=== PATIENT | female | born 1965 | race Caucasian/White ===

== ENCOUNTER → 2016-08-12 | Outpatient (CLI) | payer OTHER ==
[~2016-08-12] MED LIST: CALC600T9 PO; CHOL1TAB46 PO; COEN1CAP32 PO; FEXO1TAB49 PO; KETO10TA PO; MAGN400T6 PO; MULT-506 PO; OMEG10007 PO; OXYC-57 PO; PRLSR20 PO; VITA1TAB4 PO; VITACAP26 PO
[2016-08-12 09:40] LABS: BASO % 0.6 %; BASO ABS # 0.03 K/uL (0-0.2); COMPLETE YES; EOS % 2.4 %; HEMATOCRIT 42.1 % (37-47); IG% 0.2 %; LYMPH % 32.1 %; LYMPH ABS # 1.61 K/uL (1.2-3.4); MEAN CELL VOLUME 89.2 fL (80-100); MEAN CORPUSCULAR HEMOGLOBIN 29.4 pg (25-34); MEAN PLATELET VOLUME 9.3 fL (7.4-10.4); MONO % 8.4 %; NEUT % 56.3 %; PLATELET COUNT 267 K/uL (130-400); RED BLOOD COUNT 4.72 M/uL (4.2-5.4); WHITE BLOOD COUNT 5.01 K/uL (4.8-10.8)
[2016-08-12 09:56] LABS: BLOOD UREA NITROGEN 18 mg/dl (7-18); BUN/CREATININE RATIO 20.1 (10-20); CARBON DIOXIDE 25 mmol/L (21-32); CHLORIDE 106 mmol/L (98-107); GLUCOSE 91 mg/dl (70-99); POTASSIUM 4.2 mmol/L (3.5-5.1); SODIUM 139 mmol/L (136-145)
[2016-08-12 09:58] LABS: CALCIUM 9.4 mg/dl (8.5-10.1)
== END | disposition home or self-care (01) ==
LOC: C.CPL 08:19
PROVIDERS: ATTEND Orthopaedic Surgery Sports Medicine
DX: Z01.810 Encounter for preprocedural cardiovascular examination (principal); Z01.812 Encounter for preprocedural laboratory examination

== ENCOUNTER → 2016-08-26 | Day surgery (SDC) | payer OTHER ==
[2016-08-25 14:03] VITALS: Ht 165.1 cm; Wt 73.2 kg
[~2016-08-26] VITALS: Ht 165.1 cm; Wt 73.2 kg
[~2016-08-26] MED LIST changes: +ATROPINE SULFATE 0.1 MG/ML 5ML SYR IV PRN; +BUPIVACAINE/EPINEPHRINE 0.5% MPF 1:200,000 30 ML VIAL ONE; +CEFAZOLIN 1000MG/55 ML D5W IV SCH; +CEFAZOLIN SOD 1 GM VIAL ONE; +CEFAZOLIN SOD 1000MG/55 ML D5W IV ONE; +DEXAMETHASONE SOD INJ 4 MG/ML VIAL ONE; +FENTANYL CITRATE INJ 50 MCG/1 ML 2 ML VIAL IV PRN; +FENTANYL CITRATE INJ 50 MCG/1 ML 2 ML VIAL ONE; +KETOROLAC TROMETHAMINE 30 MG/ML VIAL IV. PRN; +LACTATED RINGER'S 1000ML 1,000 ML IV SCH; +LIDOCAINE HCL 2% 2 ML VIAL (20MG/ML) ONE; +MIDAZOLAM HCL 1 MG/ML 2ML VIAL ONE; +ONDANSETRON INJ 2 MG/ML 2 ML VIAL IV PRN; +ONDANSETRON INJ 2 MG/ML 2 ML VIAL ONE; +OXYCODONE/ACETAMINOPHEN 5-325 TAB PO PRN; +PROPOFOL IV EMULSION 10 MG/ML 20 ML VIAL IV ONE; +SODIUM CHLORIDE 0.9% 1000ML 1,000 ML IV SCH
--- NOTE | 2016-08-26 07:03 | History & Physical Bridge - [place] ---
H&P Re-Evaluation Bridge Note: I have examined the patient, reviewed the History & Physical and in the interval since the performance of the History & Physical I have noted the following changes of clinical significance: No changes noted
--- NOTE | 2016-08-26 09:53 | Discharge Instructions-SurgCtr ---
Discharge Instructions Date of Service Aug 26, 2016. Visit Reason for Visit: Bilateral Foot Pain; Hallux Valgus & Bunion Discharge Discharge Diagnosis / Problem: right hallux valgus deformity Discharge Goals Goal(s): Decrease discomfort, Improve function, Therapeutic intervention Activity Recommendations Activity Limitations: per Instructions/Follow-up section Weightbearing Status: Right weightbearing (as tolerated on heel with post op shoe ) Anesthesia . Post Anesthesia Instructions: If you have had General Anesthesia or IV Sedation: * Do not drive today. * Resume driving when surgeon permits. * Do not make important decisions or sign legal documents today. * Call surgeon for: 1. Temperature elevations greater than 101 degrees F. 2. Uncontrollable pain. 3. Excessive bleeding. 4. Persistent nausea and vomiting. 5. Medication intolerance (nausea, vomiting or rash). * For nausea and vomiting use only clear liquids such as: tea, soda, bouillon until nausea subsides, then gradually increase diet as tolerated. * If you have any concerns or questions, call your surgeon's office. If physician is unavailable and it is an emergency, call 911 or go to the nearest emergency room. . Diet Recommendations Home Diet: resume previous diet Procedures Procedures Performed: Right Hallux Valgus Correction; First Metatarsal Osteotomy Pending Studies Studies pending at discharge: no Medical Emergencies . Who to Call and When: Medical Emergencies: If at any time you feel your situation is an emergency, please call 911 immediately. . Non-Emergent Contact Non-Emergency issues call your: Surgeon . . "Provider Documentation" section prepared by Juan Francisco Arora. .
--- NOTE | 2016-08-26 09:54 | [facility] Post Operative Brief Note ---
Immediate Operative Summary Operative Date Aug 26, 2016. Pre-Operative Diagnosis Right Hallux Valgus and Bunion Post-Operative Diagnosis Same Procedure(s) Performed Right Hallux Valgus Correction; First Metatarsal Osteotomy and distal soft tissue re-alignment Surgeon Dr. Elva Milligan Exercise Planner Surgeon(s) Marlo Arora PA-C Estimated Blood Loss 20 ML Findings Bunion; Hallus Valgus Specimens NONE Anesthesia General Complication(s) None Disposition Recovery Room / PACU
--- NOTE | 2016-08-26 10:13 | Anesthesia Progress Nt - [facility] ---
Anesthesia Post Op Note Date & Time Aug 26, 2016 at 10:13 Vital Signs Pain Intensity: 0 Vital Signs Past 12 Hours Date Time Temp Pulse Resp B/P (MAP) Pulse Ox O2 Delivery O2 Flow Rate FiO2 08/26/16 10:05 59 13 100 08/26/16 10:05 61 13 08/26/16 10:01 125/61 08/26/16 10:00 60 16 100 08/26/16 10:00 60 16 08/26/16 09:56 122/59 08/26/16 09:55 63 14 100 08/26/16 09:55 63 14 08/26/16 09:51 119/65 08/26/16 09:50 69 19 08/26/16 09:50 69 19 100 08/26/16 09:50 36.5 69 12 119/65 99 Diffusion Mask 6 08/26/16 07:08 37.0 59 16 120/74 (89) 95 Room Air Notes Mental Status: alert / awake / arousable, participated in evaluation Pt Amnestic to Procedure: Yes Nausea / Vomiting: adequately controlled Pain: adequately controlled Airway Patency, RR, SpO2: stable & adequate BP & HR: stable & adequate Hydration State: stable & adequate Anesthetic Complications: no major complications apparent
[2016-08-26 10:38] VITALS: TEMP 36.4
[2016-08-26 11:15] VITALS: BP 121/78; PULSE 58; O2SAT 99
--- NOTE | 2016-08-27 14:10 | OPERATIVE REPORT ---
DATE: 08/26/2016 PREOPERATIVE DIAGNOSIS: Right symptomatic hallux valgus/bunion deformity. POSTOPERATIVE DIAGNOSIS: Same. PROCEDURE: Right hallus valgus correction with first metatarsal osteotomy and distal soft tissue realignment. SURGEON: Dr. Anatoliy Milligan. DIRECTOR OF RETAIL OPERATIONS: Maycol Arora PA-C. COMPLICATIONS: None. ESTIMATED BLOOD LOSS: 20 cc. TOURNIQUET TIME: 59 minutes at 300 mmHg. ANESTHESIA: General. OPERATIVE INDICATIONS: Patient is a 51-year-old female who has had a long history of bilateral foot pain and discomfort dating back to her teenage years. She tried to manage this conservatively but became more difficult over time. The bunion has progressed. She is having difficulty with shoe wear. She elected to proceed with surgical treatment. OPERATIVE IMPLANTS: Synthes 2.4 mm steel screws, one at 18 mm in length, one at 20 mm in length, and one at 26 mm in length. OPERATIVE PROCEDURE: Patient was taken to the operating room, identified and placed on the operating table in supine position. All contact areas were appropriately padded. IV antibiotics were provided by the anesthesia team. A general anesthetic was implemented by anesthesia team. Right thigh tourniquet was then placed. The right ankle was then prepped with alcohol. I then did an ankle block with a total of 30 cc of 0.5% Marcaine with epinephrine. The right foot and ankle were then prepped and draped in the usual sterile fashion. The right leg was elevated and exsanguinated with Esmarch and tourniquet was placed at 300 mmHg. Attention was first drawn to the lateral release. A 3 cm incision was made in the first web space. Blunt dissection was carried through the subcutaneous tissue down to the joint capsule. Great care was taken to protect the digital nerves. I then made an incision in the joint capsule longitudinally dorsal to the lateral sesamoid. I extended this out to the joint and then released the adductor tendon off the base of the proximal phalanx. I then made a transverse incision in the joint in order to allow it to open and release the lateral side. I also released the adductor tendon off the lateral aspect of the sesamoid. I then was able to deviate the toe at least 30 degrees into varus and we stopped with this at this point. I packed this wound. Attention was drawn medially. A direct medial approach to the first MTP joint was then performed and extended up to the tarsometatarsal joint. Blunt dissection was carried through the subcutaneous tissues. Full thickness flaps were elevated. I then made an L-shaped capsulotomy over the first MTP joint beginning about 1 cm plantar and medial to the EHL tendon. I then used a saw to resect the medial eminence. I then used a saw to perform a Ludloff osteotomy. I then took a towel clilp and shifted the dorsal piece laterally and the proximal piece medially. I then held it with a reduction clamp. I fixed this with three 2.4 mm stainless steel screws placed in a lag fashion. This provided excellent approximation of the bone. It afforded a very nice correction. Some x-rays were obtained. I irrigated this wound. I then resected some of the prominent medial aspect of the shifted osteotomy site. I then proceed with soft tissue repair. The distal limb of the capsulotomy was then excised for thickness of about 5 mm. I then repaired the medial capsule in a [id number] fashion using 2-0 Vicryl sutures. I then irrigated both wounds again. The tourniquet was then leg down for a tourniquet time of 59 minutes. Hemostasis was assured with the use of electrocautery. Subcutaneous tissues of both wounds were then closed with 3-0 Vicryl suture in a buried interrupted fashion. Skin was then closed with 4-0 nylon suture in a horizontal mattress fashion. The foot was then cleaned and dried and a sterile dressing of Xeroform, 4x4, sterile cast padding and a great toe Spica dressing was applied followed by an I-post shoe. The patient was then brought out of general anesthesia and transferred to the recovery room in stable condition. The patient tolerated the procedure well. No complications.
== END | disposition home or self-care (01) ==
LOC: X.SURG 06:46
PROVIDERS: ATTEND Orthopaedic Surgery Sports Medicine
DX: M20.11 Hallux valgus (acquired), right foot (principal); M21.611 Bunion of right foot; G47.33 Obstructive sleep apnea (adult) (pediatric); Z90.89 Acquired absence of other organs; Z98.890 Other specified postprocedural states; Z98.818 Other dental procedure status; Z82.49 Family history of ischemic heart disease and other diseases of the circulatory system; Z82.3 Family history of stroke; Z83.3 Family history of diabetes mellitus; Z80.0 Family history of malignant neoplasm of digestive organs

== ENCOUNTER 2019-04-21 09:45 | Observation (INO) ==
[2019-04-21] MEDS ORDERED: ONDANSETRON INJ 2 MG/ML 2 ML VIAL IV PRN (10:52)
[2019-04-21] MEDS ORDERED: MoRPHine SULFATE 2 MG/ML CARP IV PRN (10:57)
[2019-04-21] MEDS ORDERED: PROMETHAZINE HCL 12.5 MG in SODIUM CHLORIDE 0.9% 50 ML IV PRN (10:57)
--- NOTE | 2019-04-21 10:59 | History & Physical Report ---
Date of Service April 21, 2019 Assessment & Plan (1) Nausea & vomiting: Patient is postoperative day 1 endoscopic procedure(TIF ) for severe GERD Continues to have intractable nausea, dry heaving, epigastric discomfort Unable to tolerate clears, Had not had any vomiting episode, no bowel movement no blood in stool Patient was at [facility] ER last night Lab at 2300 on 04/20/2019: Showed mild leukocytosis WBC 11.76 Mild hyponatremia sodium 130 Normal potassium 3.9, normal liver function Patient is started with IV fluids, ordered for n.p.o. for bowel rest, IV PPI Ordered for IV Phenergan/IV Zofran as needed for nausea Morphine as needed for epigastric discomfort, patient was given in ER yesterday Which helped with her symptoms Gastroenterology Dr. Thomas Lugo who did the procedure yesterday, is contacted, Commence continue with IV fluids, correction of dehydration, monitor electrolytes, bowel rest Patient will be seen by GI later this afternoon Hyponatremia: Possible secondary to poor p.o. intake, not able to tolerate liquid, dehydration For IV fluids Repeat BMP in a.m. History of severe GERD Status post endoscopic fundoplication(TIF ) procedure At present n.p.o. for GI symptoms, Ordered for IV PPI CODE STATUS: Full code DVT prophylaxis: Low risk SCD and teds patient is encouraged to ambulate Disposition: Expected to be discharged home when medically stable History of Present Illness Chief Complaint: Nausea vomiting Primary Care Provider: Yousuf Rivers MD This is a 54-year-old female with a long history of severe gastroesophageal reflux, failed treatment with medical management/PPI Underwent TIF(transoral incision less fundoplication) procedure done at [facility] yesterday 04/20/[address] Thomas Lugo. Patient had uncomplicated recovery post procedure, was discharged home around noontime. She started to have dry heaving, intractable nausea and epigastric pain on the afternoon, Came to [facility] ER last night, she was given IV fluids, antinausea medications, IV Phenergan/Zofran, Her symptoms was better after a few hours patient was discharged home around 3 AM this morning Around 7:00 in the morning patient developed intractable pain, nausea, dry heaving, Unable to drink water, Patient's is very concerned about the symptoms, as patient was instructed by GI not to have any vomiting postprocedure-reached out to [facility] GI office, Patient was directly admitted to medical floor for IV fluids, bowel rest under [facility] hospitalist service. Plan of care discussed with Dr. Thomas Lugo, he will see the patient this afternoon in hospital Per my interview with the patient at bedside, patient was not able to talk secondary to severe nausea abdominal pain, most of the information obtained from Patient did not have any fever postprocedure no cough, did not had any bowel movement, able to pass gas Has not been able to tolerate any liquid, Patient was discharged with per rectal Phenergan, and p.o. Zofran ODT tablets, none of them helped with her persistent nausea Allergies Allergy/AdvReac Type Severity Reaction Status Date / Time Sulfa (Sulfonamide AdvReac Gastrointestinal Verified 04/21/19 01:16 Antibiotics) Upset Home Medications Home Medications Medication Instructions Recorded Confirmed Type Probiotic 1 cap PO QAM 03/10/19 04/21/19 History multivitamin 1 tab PO QAM 03/10/19 04/21/19 History pantoprazole 40 mg PO QAM 03/10/19 04/21/19 History vitamin E 400 unit PO QAM 03/10/19 04/21/19 History ondansetron HCl [Zofran] 4 mg PO Q6H PRN 04/21/19 04/21/19 History promethazine 25 mg MO Q6H PRN #12 ea 04/21/19 04/21/19 Rx Past Med/Surg History Social History Preferred Language: Yoruba Communication Ability: Effective Yarn Salvager Required: No Beliefs That Will Affect Care: None Current Living Situation: Spouse Other Information That Helps Us Care for You: No Feels Safe at Home: Yes Safety Concerns: Feels Safe At This Time Smoking Status: Never smoker Second Hand Exposure: Yes (as a child) ; Hx Alcohol Use: Yes Alcohol type: wine and hard liquor Hx Substance Use: No Review of Systems Review of Systems: All systems reviewed & are unremarkable except as noted in HPI & below Gastrointestinal: + abdominal pain and + nausea Physical Exam Constitutional: WD/WN, vitals as above + acute distress (In moderate distress secondary to nausea) Eyes: + anicteric sclerae ENMT: external ear and nose normal, oropharynx normal Neck: trachea midline, no thyromegaly Respiratory: normal respiratory effort, lungs clear to auscultation Cardiovascular: RRR, no murmur, no edema Gastrointestinal (Abdomen): Inspection/Auscultation: normal bowel sounds Percussion/Palpation: + abdomen tender (Epigastric tenderness) and abdomen soft Musculoskeletal: no cyanosis or clubbing, extremities motor strength 5/5 Skin: no rashes, warm and dry Neurologic: PERRL, EOMI, accommodation nl, no face palsy, no dysarthria Psychiatric: Orientation: alert and oriented x 3 Affect: + anxious affect (1) Nausea & vomiting Vomiting Intractability: non-intractable Vomiting type: unspecified Qualified Code(s): R11.2 - Nausea with vomiting, unspecified
[2019-04-21] MEDS ORDERED: ACETAMINOPHEN 1,000 MG/100 ML VIAL IV PRN (11:32)
[2019-04-21] MEDS: LACTATED RINGER'S 1,000 ML IV SCH ×2 (11:32→18:58)
[2019-04-21] MEDS: FAMOTIDINE 20 MG in SYRINGE 3 ML IV SCH ×2 (11:49→20:11)
[2019-04-21] MEDS: PANTOprazole 40 MG in SYRINGE 0 ML IV SCH ×2 (11:49→20:04)
--- NOTE | 2019-04-21 15:45 | Gastrointestinal Consultation ---
Date of Consultation April 21, 2019 Assessment & Plan (1) Nausea: Patient is s/p TIF. Now feels better and nausea controlled. Recommend: Continue IV Hydration. Continue IV Antiemetics. IV Tylenol as needed for pain. Avoid Opioids. Keep on Ice chips and sips of water as tolerated today. I will advance her diet to clear liquids tomorrow after I evaluate her myself. Please call me directly anytime over the weekend if any issues or concerns. 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 Today morning she indicated that she is still has nausea and feels she can not handle clear liquids hence I directly admitted her for IV Hydration and IV meds. She feels great now, no more nausea, tolerated Ice chips. No abdominal pain, no vomiting. Allergies Allergy/AdvReac Type Severity Reaction Status Date / Time Sulfa (Sulfonamide AdvReac Gastrointestinal Verified 04/21/19 01:16 Antibiotics) Upset Home Medications Home Medications Medication Instructions Recorded Confirmed Type Probiotic 1 cap PO QAM 03/10/19 04/21/19 History multivitamin 1 tab PO QAM 03/10/19 04/21/19 History pantoprazole 40 mg PO QAM 03/10/19 04/21/19 History vitamin E 400 unit PO QAM 03/10/19 04/21/19 History ondansetron HCl [Zofran] 4 mg PO Q6H PRN 04/21/19 04/21/19 History promethazine 25 mg FL Q6H PRN #12 ea 04/21/19 04/21/19 Rx Patient History Social History Preferred Language: Cape Verdean Communication Ability: Effective Mat Maker Required: No Beliefs That Will Affect Care: None Current Living Situation: Spouse Other Information That Helps Us Care for You: No Feels Safe at Home: Yes Safety Concerns: Feels Safe At This Time Smoking Status: Never smoker Second Hand Exposure: Yes (as a child) ; Hx Alcohol Use: Yes Alcohol type: wine and hard liquor Hx Substance Use: No Review of Systems Constitutional: no fever, no chills, no fatigue and no weight loss Eyes: no eye pain and no worsening vision Ear, Nose, Mouth, Throat: no tinnitus, no dizziness, no nasal discharge and no epistaxis Respiratory: no cough, no dyspnea, no dyspnea on exertion and no wheezing Cardiovascular: no chest pain, no orthopnea, no palpitations and no edema Gastrointestinal: as per Subjective / HPI Genitourinary: no dysuria, no urinary frequency, no urinary incontinence and no hematuria Musculoskeletal: no stiffness and no myalgia Neurologic: no localized weakness, no paralysis, no tremor(s) and no headache(s) Endocrine: no polydipsia and no polyuria Hematologic / Lymphatic: no easy bleeding and no night sweats Physical Exam Constitutional: + well hydrated, cooperative and comfortable Eyes: PERRL, conjunctivae normal, anicteric sclerae ENMT: external ear and nose normal, oropharynx normal Neck: normal visual inspection and trachea midline Respiratory: normal respiratory effort, lungs clear to auscultation Auscultation: no wheezes Cardiovascular: RRR, no murmur, no edema Gastrointestinal (Abdomen): normal bowel sounds, soft, nontender, no hepatosplenomegaly Musculoskeletal: no cyanosis or clubbing, extremities motor strength 5/5 Skin: no rashes, warm and dry Neurologic: awake; no focal motor deficits Motor/Sensory: no tremor Results & Data ([facility]) Vital Signs (Past 12 Hours) Vital Signs Temp Pulse Resp BP Pulse Ox 04/21/19 12:42 141/84 H 04/21/19 10:47 37.1 C 64 16 163/93 H 97 Laboratory Results Reviewed from ED visit.
[2019-04-21] MEDS ORDERED: LORazepam 0.5 MG/1 ML VIAL IV PRN ×2 (16:47→21:00)
[2019-04-21] MEDS ORDERED: ACETAMINOPHEN 1000 MG/100 ML IV IV ONE (17:15)
[2019-04-22] MEDS: LACTATED RINGER'S 1,000 ML IV SCH ×2 (03:14→11:05)
[2019-04-22 06:57] LABS: Hematocrit (blood only) 34.6 % (37-47); Hemoglobin 11.5 g/dL (12.0-16.0); Mean Corpuscular Hemoglobin 30.4 pg (25-34); Mean Corpuscular Hgb Conc 33.2 g/dL (32-36); Mean Corpuscular Volume 91.5 fL (80-100); Mean Platelet Volume 9.3 fL (7.4-10.4); Platelet Count 205 K/uL (130-400); RDW Coefficient of Variation 13.6 % (11.5-14.5); RDW Standard Deviation 45.1 fL (36.4-46.3); Red Blood Count 3.78 M/uL (4.2-5.4); White Blood Count 6.78 K/uL (4.8-10.8)
[2019-04-22 07:32] LABS: BUN Creatinine Ratio 15.7 (10-20); Calcium 8.6 mg/dl (8.5-10.1); Creatinine Clr Calc Pharmacy 90.9 ml/min; Est GFR (African American) 110.4; Est GFR (Non-African American) 95.2; Potassium 3.6 mmol/L (3.5-5.1)
--- NOTE | 2019-04-22 09:28 | Progress Note ---
Date of Service April 22, 2019 Assessment & Plan Admission and Anticipated Discharge Date Admission Date: April 21, 2019 Subjective I have seen and examined the patient today, she feels good, no abdominal pain, nausea or vomiting. On exam abdomen is soft. Labs: reviewed Recommend: Advance to clear liquids, if she tolerates then she can be discharged home with PO antiemetics today or tomorrow. Results & Data ([facility]) Vital Signs (Past 12 Hours) Vital Signs Temp Pulse Resp BP BP Pulse Ox 04/22/19 07:39 36.9 C 55 L 16 128/69 93 04/21/19 23:42 36.8 C 63 18 146/82 H 94
[2019-04-22] MEDS: PANTOprazole 40 MG in SYRINGE 0 ML IV SCH (10:03)
[2019-04-22] MEDS: FAMOTIDINE 20 MG in SYRINGE 3 ML IV SCH (10:04)
[2019-04-22] MEDS ORDERED: ACETAMINOPHEN 325 MG TAB PO PRN (12:17)
[2019-04-22] MEDS ORDERED: LORazepam 0.5 MG TAB PO PRN (12:22)
--- NOTE | 2019-04-22 12:23 | Hospitalist Progress Note ---
Date of Service April 22, 2019 Assessment & Plan (1) Nausea & vomiting: Patient is status post endoscopic procedure(TIF ) for severe GERD Admitted with intractable nausea, dry heaving, epigastric discomfort Patient treated with IV fluids, IV anti-emetics, bowel rest, supportive care Appreciate input from gastroenterology Dr. Thomas Lugo Patient does not have any GI symptoms this morning, Diet advanced to clears, has been tolerating well Hyponatremia: Possible secondary to poor p.o. intake, intractable nausea not able to tolerate liquid, dehydration Corrected with IV fluids Sodium 141 within normal limit today DC IV fluids, patient is encouraged for fluid intake History of severe GERD Status post endoscopic fundoplication(TIF ) procedure Continue with outpatient PPI changed to p.o. as patient has been able to tolerate clear liquid diet CODE STATUS: Full code DVT prophylaxis: Low risk SCD and teds patient is encouraged to ambulate Disposition: Observe overnight, for any recurrence of GI symptoms Plan to discharge home tomorrow if remains medically stable Admission and Anticipated Discharge Date Admission Date: April 21, 2019 Anticipated date of discharge: 04/23/19 Subjective Patient feels much better today, no complaint of nausea, tolerating clear liquid diet No abdominal pain or discomfort Did not had any bowel movement yet, No fever or chills Review of Systems Gastrointestinal: no abdominal pain and no nausea Physical Exam Constitutional: WD/WN, vitals as above no acute distress Eyes: + anicteric sclerae ENMT: external ear and nose normal, oropharynx normal Neck: trachea midline, no thyromegaly Respiratory: normal respiratory effort, lungs clear to auscultation Cardiovascular: RRR, no murmur, no edema Gastrointestinal (Abdomen): Inspection/Auscultation: normal bowel sounds P ercussion/Palpation: abdomen soft; abdomen nontender Musculoskeletal: no cyanosis or clubbing, extremities motor strength 5/5 Skin: no rashes, warm and dry Neurologic: PERRL, EOMI, accommodation nl, no face palsy, no dysarthria Psychiatric: Orientation: alert and oriented x 3 Results & Data ([facility]) Vital Signs (Past 12 Hours) Vital Signs Temp Pulse Resp BP Pulse Ox 04/22/19 07:39 36.9 C 55 L 16 128/69 93 (1) Nausea & vomiting Vomiting Intractability: non-intractable Vomiting type: unspecified Qualified Code(s): R11.2 - Nausea with vomiting, unspecified
[2019-04-23] MEDS ORDERED: TOCOPHERYL, DL-ALPHA 400 UNITS CAP PO SCH (09:00)
[2019-04-23] MEDS ORDERED: MULTIVITAMIN TAB PO SCH (09:00)
[2019-04-23] MEDS ORDERED: PANTOprazole 40 MG TAB PO SCH (09:00)
[2019-04-23] MEDS ORDERED: LACTOBACILLUS ACIDOPHILUS (FLORANEX) TAB PO SCH (09:00)
--- NOTE | 2019-04-23 11:40 | Hospitalist Progress Note ---
Date of Service April 23, 2019 Assessment & Plan (1) Nausea & vomiting: symptoms has completely resolved able to tolerate diet , no nausea /vomiting tolerating her home meds D/w GI Dr Thomas Lugo -stable to be discharged home today Patient is status post endoscopic procedure(TIF ) for severe GERD Admitted with intractable nausea, dry heaving, epigastric discomfort Patient treated with IV fluids, IV anti-emetics, bowel rest, supportive care Appreciate input from gastroenterology Dr. Thomas Lugo Hyponatremia: Possible secondary to poor p.o. intake, intractable nausea not able to tolerate liquid, dehydration corrected History of severe GERD Status post endoscopic fundoplication(TIF ) procedure Continue with outpatient PPI CODE STATUS: Full code DVT prophylaxis: Low risk SCD and teds patient is encouraged to ambulate Disposition: stable to be discharged home today Admission and Anticipated Discharge Date Admission Date: April 21, 2019 Anticipated date of discharge: 04/23/19 Subjective no complain of nausea /vomiting or abdominal pain feels fine denies of any discomfort tolerated clears well , able to take her meds stable to be discharged home today Review of Systems Review of Systems: All systems reviewed & are unremarkable except as noted in HPI & below Gastrointestinal: no abdominal pain, no heartburn, no nausea and no vomiting Physical Exam Constitutional: WD/WN, vitals as above no acute distress Eyes: + anicteric sclerae ENMT: external ear and nose normal, oropharynx normal Neck: trachea midline, no thyromegaly Respiratory: normal respiratory effort, lungs clear to auscultation Cardiovascular: RRR, no murmur, no edema Gastrointestinal (Abdomen): Inspection/Auscultation: normal bowel sounds Percussion/Palpation: abdomen soft; abdomen nontender Musculoskeletal: no cyanosis or clubbing, extremities motor strength 5/5 Skin: no rashes, warm and dry Neurologic: PERRL, EOMI, accommodation nl, no face palsy, no dysarthria Psychiatric: Orientation: alert and oriented x 3 Affect: + anxious affect Results & Data ([facility]) Vital Signs (Past 12 Hours) Vital Signs Temp Pulse Resp BP Pulse Ox 04/23/19 07:25 36.4 C L 61 16 121/81 95 (1) Nausea & vomiting Vomiting Intractability: non-intractable Vomiting type: unspecified Qualified Code(s): R11.2 - Nausea with vomiting, unspecified
--- NOTE | 2019-04-23 12:03 | Discharge Summary ---
Date of Service April 23, 2019 Admission HPI Per Admitting Provider This is a 54-year-old female with a long history of severe gastroesophageal reflux, failed treatment with medical management/PPI Underwent TIF(transoral incision less fundoplication) procedure done at [facility] yesterday 04/20/[address] Thomas Lugo. Patient had uncomplicated recovery post procedure, was discharged home around noontime. She started to have dry heaving, intractable nausea and epigastric pain on the afternoon, Came to [facility] ER last night, she was given IV fluids, antinausea medications, IV Phenergan/Zofran, Her symptoms was better after a few hours patient was discharged home around 3 AM this morning Around 7:00 in the morning patient developed intractable pain, nausea, dry heaving, Unable to drink water, Patient's is very concerned about the symptoms, as patient was instructed by GI not to have any vomiting postprocedure-reached out to [facility] GI office, Patient was directly admitted to medical floor for IV fluids, bowel rest under [facility] hospitalist service. Plan of care discussed with Dr. Thomas Lugo, he will see the patient this afternoon in hospital Per my interview with the patient at bedside, patient was not able to talk secon sonia to severe nausea abdominal pain, most of the information obtained from Patient did not have any fever postprocedure no cough, did not had any bowel movement, able to pass gas Has not been able to tolerate any liquid, Patient was discharged with per rectal Phenergan, and p.o. Zofran ODT tablets, none of them helped with her persistent nausea Principal Diagnosis Status post endoscopic fundoplication procedure, history of GERD, nausea vomiting abdominal discomfort post procedure: All symptom has resolved Discharge Exam Constitutional WD/WN, vitals as above no acute distress Eyes + anicteric sclerae ENMT external ear and nose normal, oropharynx normal Neck trachea midline, no thyromegaly Respiratory normal respiratory effort, lungs clear to auscultation Cardiovascular RRR, no murmur, no edema Gastrointestinal (Abdomen) Inspection/Auscultation: normal bowel sounds Percussion/Palpation: abdomen soft; abdomen nontender Musculoskeletal no cyanosis or clubbing, extremities motor strength 5/5 Skin no rashes, warm and dry Neurologic PERRL, EOMI, accommodation nl, no face palsy, no dysarthria Psychiatric Orientation: alert and oriented x 3 Affect: + anxious affect Discharge Data Allergies Allergy/AdvReac Type Severity Reaction Status Date / Time Sulfa (Sulfonamide AdvReac Gastrointestinal Verified 04/21/19 01:16 Antibiotics) Upset Hospital Course (1) Nausea & vomiting: symptoms has completely resolved able to tolerate diet , no nausea /vomiting tolerating her home meds D/w GI Dr Thomas Lugo -stable to be discharged home today Patient is status post endoscopic procedure(TIF ) for severe GERD Admitted with intractable nausea, dry heaving, epigastric discomfort Patient treated with IV fluids, IV anti-emetics, bowel rest, supportive care Appreciate input from gastroenterology Dr. Thomas Lugo Hyponatremia: Possible secondary to poor p.o. intake, intractable nausea not able to tolerate liquid, dehydration corrected History of severe GERD Status post endoscopic fundoplication(TIF ) procedure Continue with outpatient PPI CODE STATUS: Full code DVT prophylaxis: Low risk SCD and teds patient is encouraged to ambulate Disposition: stable to be discharged home today Total Time Total Time Spent Total Time Spent (In Minutes): approx 35 mins Total Time Includes: Examination of the Patient, Discharge Planning, Medication Reconciliation and Communication With Other Providers Discharge Plan Discharge Items Patient Disposition: Home - Self-Care Reason For Visit: NAUSEA, VOMITING Discharge Diagnosis: Status post endoscopic fundoplication procedure, history of GERD, nausea vomiting abdominal discomfort post procedure: All symptom has resolved Activity: Resume your previous activity Non-emergency contact: Primary Care Provider Call non-emergency contact if: you have any medication questions Follow-up/Referrals: Yousuf Rivers MD [Primary Care Provider] - 04/27/19 11:00 am Diet: Regular Diet Texture: Dental soft (bite-sized) Addtl Attending Provider Instructions: Follow-up with gastroenterology Dr. Thomas Lugo as scheduled Pending Studies at Discharge: No Stand-Alone Forms: My EMBI, Smoking Cessation Medications and DC Order Prescriptions: Continued pantoprazole 40 mg Tablet,Delayed Release (Dr/Ec) 40 mg PO QAM RF: 0 multivitamin Tablet 1 tab PO QAM RF: 0 vitamin E 400 unit Capsule 400 unit PO QAM RF: 0 Probiotic 1 cap PO QAM RF: 0 ondansetron HCl [Zofran] 4 mg Tablet 4 mg PO Q6H PRN (Reason: nausea/vomiting) RF: 0 promethazine 25 mg suppository 25 mg DE Q6H PRN (Reason: sedation) Qty: 12 RF: 0 Discharge Orders: Discharge Order (Routine); Ordered 04/23/19 Ordered By: Bharti Swenson Admission Data Admit Date/Time: 04/21/19 10:53 Attending Provider: Bharti Swenson Admit Provider: Bharti Swenson Primary Care Provider: Yousuf Rivers Other Interventions: Discharge Summary Assessment (RN) Last Done: 04/23/19 11:56
--- NOTE | 2019-04-27 07:42 | Coding Query ---
CODING QUERY To promote full compliance with coding requirements relating to patient care, provider participation is requested in all cases of housing specialist uncertainty. Please assist us with the question(s) below: Coding Question(s): There is Nausea and Vomiting, status post endoscopic fundoplication procedure documented. Please clarify below, in your clinical opinion. (x ) Nausea and Vomiting are a complication of the procedure ( ) Nausea and Vomiting are Not a complication of the procedure ( ) Other: Please Specify Physician's Response(s): pt had brief episode of intractacble nausea /dry heaving post procedure ( 48 hrs ) , resolved with supportive care -anti emetics , IV fluids to correct dehydration Bharti Swenson Thank you Rosemarie Giron Principal Diagnosis: "that condition established after study, to be chiefly responsible for occasioning the admission of the patient to the hospital for care." Co-Existing Principal Diagnosis: "when two or more diagnoses equally meet the criteria for principal diagnosis as determined by the circumstances of admission, diagnostic work up, and/or therapy provided, and the Alphabetic Index, Tabular List, or another coding guideline does not provide sequencing direction, any one of the diagnoses may be sequenced first." "When the physician has documented what appears to be a current diagnosis in the body of the record, but has not included the diagnosis in the final diagnostic statement, the physician should be asked whether the diagnosis should be added." (Source Coding [facility] 2 QTR90. p3-4) SAUMYA
== END 2019-04-23 12:36 | disposition home or self-care (01) ==
LOC: 3W 10:37 → INTOOBSV 10:53